=== PATIENT | male | born 1955 | race Caucasian/White ===

== ENCOUNTER 2021-06-19 04:55 | Emergency (ER) | payer MEDICARE ==
[~2021-06-19] VITALS: Ht 188 cm; Wt 136.1 kg
[~2021-06-19 04:55] MED LIST: HYDACE5 PO
[2021-06-19] MEDS ORDERED: HYDCHL25 PO (05:12)
[2021-06-19] MEDS ORDERED: TAMS.4ER PO (05:12)
[2021-06-19] MEDS ORDERED: FINA5 PO (05:12)
[2021-06-19] MEDS ORDERED: Lisinopril2.5 MG PO (05:12)
[2021-06-19 05:30] LABS: BASOPHILS ABSOLUTE AUTO 0.01 K/mm3 (0.00-0.23); BASOPHILS PERCENT AUTO 0 % (0-2); EOSINOPHILS PERCENT AUTO 0 % (0-6); Hematocrit 42.3 % (37.0-53.0); Hemoglobin 14.4 g/dL (13.5-17.5); IMMATURE GRAN ABSOLUTE AUTO 0.03 K/mm3 (0.00-0.10); IMMATURE GRAN PERCENT AUTO 0 % (0-1); LYMPHOCYTES ABSOLUTE AUTO 0.73 K/mm3 (0.84-5.20); LYMPHOCYTES PERCENT AUTO 7 % (21-46); MONOCYTES ABSOLUTE AUTO 0.53 K/mm3 (0.16-1.47); MONOCYTES PERCENT AUTO 5 % (4-13); Mean Corpuscular HGB 29.2 pg (26.0-34.0); Mean Corpuscular Volume 86 fL (80-100); Mean Platelet Volume 12.1 fL (9.1-12.4); NEUTROPHILS ABSOLUTE AUTO 8.84 K/mm3 (1.96-9.15); NEUTROPHILS PERCENT AUTO 87 % (41-73); Platelet Count 148 K/mm3 (150-400); RDW Standard Deviation 40.3 fL (35.1-46.3); Red Blood Cell Count 4.93 M/mm3 (4.30-5.90); White Blood Cell Count 10.14 K/mm3 (4.00-11.30)
[2021-06-19 06:10] LABS: Albumin, Blood 3.7 g/dL (3.4-5.0); Bilirubin, Total 0.9 mg/dL (0.1-1.0); Bun/Creatinine Ratio 15.2 (12.0-20.0); Calcium, Blood 10.7 mg/dL (8.5-10.1); Creatinine, Blood 1.32 mg/dL (0.60-1.20); Globulin, Blood 3.7 g/dL (2.2-4.0); Total Protein, Blood 7.4 g/dL (6.4-8.2)
[2021-06-19 09:01] LABS: Source, Urine Voided
[2021-06-19 09:09] LABS: Appearance, Urine Clear (Clear); Bilirubin, Urine Neg (Neg); Blood, Urine 3+ (Neg); Color, Urine Yellow (P-Yellow); Glucose Qualitative, Urine Neg (Neg); Ketones, Urine Neg (Neg); Leukocyte Esterase, Urine Neg (Neg); Nitrite, Urine Neg (Neg); Protein, Urine Neg (Neg); Urobilinogen, Urine NORM (Normal)
[2021-06-19 09:22] LABS: Red Blood Cells, Urine 0-2 /hpf (0-2); Squamous Epithelial Cells Rare /hpf (Few)
[2021-06-19 09:23] LABS: Bacteria Rare /hpf
[2021-06-19] MEDS ORDERED: HYDACE10B PO (10:44)
[2021-06-19 12:00] LABS: Influenza A, PCR NEGATIVE (NEGATIVE); Influenza B, PCR NEGATIVE (NEGATIVE); Resp Syncytial Virus, PCR NEGATIVE (NEGATIVE)
[2021-06-19 12:06] LABS: SARS-Cov-2 (COVID-19) PCR, MMC POSITIVE (NEGATIVE)
== END 2021-06-19 11:12 | disposition home or self-care (01) ==
LOC: ER 04:55
PROVIDERS: Emergency Medicine; Student in an Organized Health Care Education/Training Program
DX: N13.2 Hydronephrosis with renal and ureteral calculous obstruction (principal); I10 Essential (primary) hypertension; N40.0 Benign prostatic hyperplasia without lower urinary tract symptoms; Z88.0 Allergy status to penicillin; Z79.899 Other long term (current) drug therapy
CPT/HCPCS: 0241U; 36415; 74177; 80053; 81001; 83690; 85025; 96374-59; 96375; 99284-25; J1170; J2270; J2405; J7030; Q9967

== ENCOUNTER 2022-04-09 06:08 | Day surgery (SDC) | payer OTHER ==
[~2022-04-09] VITALS: Ht 188 cm; Wt 132.8 kg
[~2022-04-09 06:08] MED LIST changes: +FINA5 PO; +HYDACE10B PO; +HYDCHL25 PO; +Lisinopril2.5 MG PO; +TAMS.4ER PO
[2022-04-09] MEDS ORDERED: Aspir 8181 MG PO (06:26)
--- NOTE | 2022-04-09 09:51 | NUR ---
Ambulatory in Day Surgery Discharge instructions reviewed with patient. Patient verbalizes understanding. Copy given to patient to take home. Dressing to procedure site clean, dry, intact with no visible drainage, swelling, erythema or bruising noted. Discharged via wheelchair to private car for ride home.
== END 2022-04-09 23:10 | disposition home or self-care (01) ==
LOC: ORSCMMR 06:08 → ORD 07:30 → ORSCMMR 07:30
PROVIDERS: Surgery
PROC: 0JB50ZX Excision of Left Neck Subcutaneous Tissue and Fascia, Open Approach, Diagnostic (ICD-10-PCS; principal; 2022-04-09 07:30)
DX: D17.0 Benign lipomatous neoplasm of skin and subcutaneous tissue of head, face and neck (principal); I10 Essential (primary) hypertension; N40.0 Benign prostatic hyperplasia without lower urinary tract symptoms; E66.9 Obesity, unspecified; Z68.37 Body mass index [BMI] 37.0-37.9, adult; Z79.899 Other long term (current) drug therapy
CPT/HCPCS: 88304; J0690; J1100; J2370; J2405; J2704; J2795; J3010; J7120

== ENCOUNTER 2022-09-08 07:14 | Day surgery (SDC) | payer OTHER ==
[~2022-09-08] VITALS: Ht 185.4 cm; Wt 131.0 kg
[~2022-09-08 07:14] MED LIST changes: +Aspir 8181 MG PO
--- NOTE | 2022-09-08 08:01 | NUR ---
09/08/22 0801 Leighton Santacruz HISTORY, CHART, MEDICATIONS AND ALLERGIES REVIEWED BEFORE START OF PROCEDURE. PATIENT CONFIRMS NPO STATUS AND AGREES WITH SCHEDULED PROCEDURE. 3-LEAD EKG REVIEWED WITH PHYSICIAN PRIOR TO START OF PROCEDURE. MONITOR INTACT WITH CONTINUOUS PULSE OXIMETRY,CAPNOGRAPHY, 3-LEAD EKG, INTERMITTENT BP. SUPPLEMENTAL O2 TO BE TITRATED THROUGHOUT PROCEDURE TO MAINTAIN O2 SATURATION ABOVE 90% WITH POM MASK . PATIENT DETERMINED TO BE ASA APPROPRIATE FOR PROPOFOL SEDATION PRIOR TO START OF PROCEDURE BY DR. REYNOSO.
--- NOTE | 2022-09-08 09:02 | NUR ---
PT AWARE OF ELEVATED BP, HE STATES IT IS ALWAYS HIGH AT FACILITIES. HE WILL TAKE HIS BP AT HOME AND CONTACT PCP IF IT REMAINS ELEVATED. Discharge instructions reviewed with patient. Patient verbalizes understanding. Copy given to patient to take home.Lungs clear T/O to Auscultation. Discharged via wheelchair to private car for ride home.
== END 2022-09-08 23:14 | disposition home or self-care (01) ==
LOC: ORSCMMR 07:14 → ORD 08:00 → ORSCMMR 08:00
PROVIDERS: Internal Medicine Gastroenterology
PROC: 0DBK8ZX Excision of Ascending Colon, Via Natural or Artificial Opening Endoscopic, Diagnostic (ICD-10-PCS; principal; 2022-09-08 08:00)
PROC: 0DBN8ZX Excision of Sigmoid Colon, Via Natural or Artificial Opening Endoscopic, Diagnostic (ICD-10-PCS; principal; 2022-09-08 08:00)
PROC: 0DBP8ZX Excision of Rectum, Via Natural or Artificial Opening Endoscopic, Diagnostic (ICD-10-PCS; principal; 2022-09-08 08:00)
DX: Z12.11 Encounter for screening for malignant neoplasm of colon (principal); D12.2 Benign neoplasm of ascending colon; I10 Essential (primary) hypertension; Z79.899 Other long term (current) drug therapy; K57.30 Diverticulosis of large intestine without perforation or abscess without bleeding; Z79.82 Long term (current) use of aspirin
CPT/HCPCS: 88305; J2704; J7120

== ENCOUNTER 2024-09-28 11:53 | Day surgery (SDC) | payer OTHER ==
[~2024-09-28] VITALS: Ht 188 cm; Wt 129.4 kg
[~2024-09-28 11:53] MED LIST changes: +Balanced Salt Epinephrine Irrigation Solution 500 mL IR SCH; +Diazepam 5 MG Tab PO PRN; +Diazepam 5 MG Tab PO SCH; +Lidocaine HCl/Pf 1% 5 ML VIAL XX SCH; +Moxifloxacin HCL 0.5 MG/0.1 ML 0.4MLSYR LEFTEYE SCH; +Ondansetron 4 MG SoluTab MM PRN; +PHENYLEPHRINE\\TROPICAMIDE\\TETRACAINE OPHTHALMIC DILATING SOLN LEFTEYE PRN; +Povidone-Iodine 450 DROP/30 ML Solution LEFTEYE SCH; +Povidone-Iodine 450 DROP/30 ML Solution ONE; +Tetracaine HCl/Pf 0.5% Opth Soln 4 ml ONE; +Triamcinolone Inj Susp 40 MG / ML 1ML Vial INJ SCH; +Triamcinolone Inj Susp 40 MG / ML 1ML Vial ONE
[2024-09-28] MEDS ORDERED: OMEP20ER PO (12:12)
[2024-09-28] MEDS ORDERED: RED YEAST RICE55 MG PO (12:13)
[2024-09-28] MEDS ORDERED: FentaNYL Citrate 50 MCG/ML 2 ML Injection ONE (12:30)
[2024-09-28] MEDS ORDERED: Midazolam HCl 1MG / ML 2ML Vial ONE (12:30)
--- NOTE | 2024-09-28 12:54 | NUR ---
09/28/24 1254 Kimberly Bianchi#:[id number], [phone]: [id number]
--- NOTE | 2024-09-28 13:07 | NUR ---
09/28/[address] IN AT BEDSIDE
[2024-09-28 13:15] VITALS: BP 147/91
== END 2024-09-28 13:35 | disposition home or self-care (01) ==
LOC: ORSCSDS 11:53
PROVIDERS: Ophthalmology
PROC: 08RK3JZ Replacement of Left Lens with Synthetic Substitute, Percutaneous Approach (ICD-10-PCS; principal; 2024-09-28 13:00)
DX: H25.813 Combined forms of age-related cataract, bilateral (principal); H52.202 Unspecified astigmatism, left eye; H52.4 Presbyopia; I10 Essential (primary) hypertension; K21.9 Gastro-esophageal reflux disease without esophagitis; Z79.899 Other long term (current) drug therapy
CPT/HCPCS: J2250; J3010; J3301; V2632

== ENCOUNTER 2024-10-05 10:32 | Day surgery (SDC) | payer OTHER ==
[~2024-10-05] VITALS: Ht 185.4 cm; Wt 130.7 kg
[~2024-10-05 10:32] MED LIST changes: -Diazepam 5 MG Tab PO PRN; -Diazepam 5 MG Tab PO SCH; -Moxifloxacin HCL 0.5 MG/0.1 ML 0.4MLSYR LEFTEYE SCH; +Moxifloxacin HCL 0.5 MG/0.1 ML 0.4MLSYR RIGHTEYE SCH; +NS 500 ML IV ONE; +OMEP20ER PO; -Ondansetron 4 MG SoluTab MM PRN; -PHENYLEPHRINE\\TROPICAMIDE\\TETRACAINE OPHTHALMIC DILATING SOLN LEFTEYE PRN; +PHENYLEPHRINE\\TROPICAMIDE\\TETRACAINE OPHTHALMIC DILATING SOLN RIGHTEYE PRN; -Povidone-Iodine 450 DROP/30 ML Solution LEFTEYE SCH; +Povidone-Iodine 450 DROP/30 ML Solution RIGHTEYE SCH; +RED YEAST RICE55 MG PO
[2024-10-05] MEDS ORDERED: NS 500 ML IV ONE (11:10)
--- NOTE | 2024-10-05 11:11 | NUR ---
10/05/24 1111 Pao Goff: 1104 VIDHYA: [id number]
[2024-10-05] MEDS ORDERED: Midazolam HCl 1MG / ML 2ML Vial ONE (11:28)
[2024-10-05] MEDS ORDERED: FentaNYL Citrate 50 MCG/ML 2 ML Injection ONE (11:28)
[2024-10-05 12:24] VITALS: BP 143/85
== END 2024-10-05 12:20 | disposition home or self-care (01) ==
LOC: ORSCSDS 10:32
PROVIDERS: Ophthalmology
PROC: 08RJ3JZ Replacement of Right Lens with Synthetic Substitute, Percutaneous Approach (ICD-10-PCS; principal; 2024-10-05 12:00)
DX: H25.811 Combined forms of age-related cataract, right eye (principal); Z96.1 Presence of intraocular lens; H52.4 Presbyopia; I10 Essential (primary) hypertension; N40.0 Benign prostatic hyperplasia without lower urinary tract symptoms; E66.9 Obesity, unspecified; Z68.38 Body mass index [BMI] 38.0-38.9, adult; Z79.899 Other long term (current) drug therapy
CPT/HCPCS: J2250; J3010; J3301; J7040; V2632